=== PATIENT | male | born 1970 | race African-American/Black ===

== ENCOUNTER 2017-11-26 00:17 | Inpatient (IN) ==
[2017-11-26] MEDS ORDERED: Morphine Inj 4 MG/ML Vial IV.PUSH ONE (02:19)
--- NOTE | 2017-11-26 02:28 | ED ---
HPI General Chief Complaint: Medical Clearance Stated Complaint: Medical Time Seen by Provider: 11/26/17 02:12 Source: patient Mode of arrival: EMS Limitations: no limitations History of Present Illness HPI narrative: 47-year-old male complains of abdominal pain with nausea. Patient states that he has history of pancreatitis. Patient was admitted to hospital in [place] 2 weeks ago. Patient states that he was discharged after 4 days of in patient. Patient was put on some antibiotic that he does not know the name of. Patient has been taking Creon, omeprazole and tramadol. Patient states that the pain got worse this evening. Patient states that he has severe nausea but no vomiting or diarrhea. Patient denies any fever chills. EMS was called. Patient was given morphine and Zofran on with the ED. complaint: Reports abdominal pain Onset (ago): hour(s) Pain Consistency: constant Location: Reports epigastric Severity: severe Severity scale (1-10): 9 Quality: Reports cramping Radiation: Reports none Migration to: Reports no migration Relieving factors: nothing Exacerbating factors: nothing Associated symptoms: Reports nausea Related Data Home Medications Medication Instructions Recorded Confirmed Unable to Obtain Home Meds 11/26/17 11/26/17 Allergies Allergy/AdvReac Type Severity Reaction Status Date / Time No Known Allergies Allergy Unverified 11/26/17 01:32 Review of Systems ROS: all other systems reviewed are negative [facility] Medical History Medical History Afib (Acute) Pancreatitis (Acute) Social History Social History Substance History: No History of Abuse Second Hand Smoke Exposure: No Smoking Status: Former smoker Tobacco Type: Cigarettes How Often Do You Have a Drink Containing Alcohol: Never Recent Travel in [facility] within the Last 8 Weeks: No Recent Out of Country Travel within the Last 8 Weeks: No Immunization History Tetanus Immunization: <5 Years Hx Influenza Vaccine This Season: No Exam Narrative Exam Narrative: GENERAL: Well-nourished, well-developed patient. SKIN: Focused skin assessment warm/dry. HEAD: Normocephalic. EYES: No scleral icterus. No injection or drainage. NECK: Supple, trachea midline. No JVD or lymphadenopathy. CARDIOVASCULAR: Regular rate and rhythm without murmurs, gallops, or rubs. RESPIRATORY: Breath sounds equal bilaterally. No accessory muscle use. GASTROINTESTINAL: Abdomen soft, nondistended. Patient has moderate tenderness in palpation epigastric of abdomen area. No rebound tenderness. Some mild guarding noted. No mass. MUSCULOSKELETAL: No cyanosis, or edema. BACK: Nontender without obvious deformity. No CVA tenderness. Course Initial Documented Vital Signs Temperature 98.7 F 11/26/17 01:15 Pulse Rate 20 L 11/26/17 01:15 Respiratory Rate 20 11/26/17 01:15 Blood Pressure 123/79 11/26/17 01:15 Pulse Oximetry 97 11/26/17 01:15 Last Documented Vital Signs Temperature 98.7 F 11/26/17 01:15 Pulse Rate 102 H 11/26/17 03:52 Respiratory Rate 20 11/26/17 03:52 Blood Pressure 124/66 11/26/17 03:52 Pulse Oximetry 97 11/26/17 03:52 Medical Decision Making MDM Narrative Medical decision making narrative: 47-year-old male with abdominal pain. History of pancreatitis. Normal saline solution 125 cc an hour. Patient received morphine and Zofran from EMS. Morphine 4 mg IV. Protonix 40 mg IV. Medical Screen Exam Complete: Yes Emergency Medical Condition: Yes Differential Diagnosis Differential Diagnosis: Differential diagnosis including gastritis, PUD, pancreatitis, cholecystitis, colitis, UTI, pyelonephritis, nephrolithiasis. Lab Data Lab results reviewed: Yes I reviewed the patient's lab results. Result diagrams: 11/26/17 02:28 11/26/17 02:28 Lab Results 11/26/17 11/26/17 11/26/17 Range/Units 02:28 02:28 03:33 WBC 11.0 (4.0-11.0) th/mm3 RBC 2.83 L (4.50-5.90) mil/mm3 Hgb 8.7 L (13.0-17.0) gm/dL Hct 26.8 L (39.0-51.0) % MCV 94.6 (80.0-100.0) fL MCH 30.8 (27.0-34.0) pg MCHC 32.6 (32.0-36.0) % RDW 20.1 H (11.6-17.2) % Plt Count 441 (150-450) th/mm3 MPV 9.3 (7.0-11.0) fL Neut % (Auto) 80.2 H (16.0-70.0) % Lymph % (Auto) 10.9 (9.0-44.0) % [place] % (Auto) 7.8 (0.0-8.0) % Eos % (Auto) 0.5 (0.0-4.0) % Baso % (Auto) 0.6 (0.0-2.0) % Neut # (Auto) 8.9 H (1.8-7.7) th/mm3 Lymph # (Auto) 1.2 (1.0-4.8) th/mm3 [place] # (Auto) 0.9 (0.0-0.9) th/mm3 Eos # (Auto) 0.1 (0.0-0.4) th/mm3 Baso # (Auto) 0.1 (0.0-0.2) th/mm3 WBC Differential . Differential Comment Auto diff final Sodium 136 (136-145) meq/L Potassium 4.1 (3.5-5.1) meq/L Chloride 103 (98-107) meq/L Carbon Dioxide 23.3 (21.0-32.0) meq/L Anion Gap 10 (5-15) meq/L BUN 15 (7-18) mg/dL Creatinine 2.10 H (0.60-1.30) mg/dL Estimated GFR 41 L (>89) mL/min Random Glucose 86 (74-106) mg/dL Calcium 7.6 L (8.5-10.1) mg/dL Total Bilirubin 0.1 L (0.2-1.0) mg/dL AST 19 (15-37) U/L ALT 11 L (12-78) U/L Alkaline Phosphatase 90 (45-117) U/L Total Protein 7.3 (6.4-8.2) g/dL Albumin 2.1 L (3.4-5.0) g/dL Lipase 4923 H (73-393) U/L Urine Color Yellow (Yellw/Straw) Urine Clarity Clear (Clear) Urine pH 6.0 (5.0-8.5) Ur Specific [place] 1.011 (1.002-1.035) Urine Protein Negative (Neg-Trace) mg/dL Urine Glucose (UA) Negative (Negative) mg/dL Urine Ketones Trace H (Negative) mg/dL Urine Occult Blood Negative (Negative) Urine Nitrate Negative (Negative) Urine Bilirubin Negative (Negative) Urine Urobilinogen Less than 2 (Less than 2) mg/dL Ur Leukocyte Esterase Trace H (Negative) Urine WBC Less than 1 (0-5) /hpf Hyaline Casts 28 (0-3) /lpf Urine Mucus Few H (Occasional) /lpf Micro UA Comment Culture not ind Ur Microscopic Review Not Reportable Urine Culture Comments Culture not ind Imaging Data Attestation: I personally reviewed and interpreted this imaging study as follows : Radiologist's impression: Abdomen/Pelvis CT 11/26/17 02:19 CONCLUSION: 1. Cystic change in the right upper quadrant. The most common cause for cystic change in this region would be pancreatitis. These could be pseudocysts. 2. Mild ascites. Discharge Plan Discharge Disposition Patient Disposition: 30 Still Patient Discharge Details Diagnosis: Pancreatitis Physicians Team ED Provider: Chester Tobar Primary Care Provider: [facility]Orders / Referrals /Forms Prescriptions: No Action Unable to Obtain Home Meds RF: 0 Discharge Interventions Interventions: Vital Signs Last Done: 11/26/17 03:52 Status ED Status: With Doctor
[2017-11-26] MEDS: Sod Chloride 0.9% Inj 1,000 ML IV.CONT SCH ×7 (02:29→23:38)
[2017-11-26 02:44] LABS: Baso # (Auto) 0.1 th/mm3 (0.0-0.2); Baso % (Auto) 0.6 % (0.0-2.0); Eos # (Auto) 0.1 th/mm3 (0.0-0.4); Eos % (Auto) 0.5 % (0.0-4.0); Hematocrit 26.8 % (39.0-51.0); Hemoglobin 8.7 gm/dL (13.0-17.0); Lymph # (Auto) 1.2 th/mm3 (1.0-4.8); Lymph % (Auto) 10.9 % (9.0-44.0); Mean Corpuscular HGB Conc 32.6 % (32.0-36.0); Mean Corpuscular Hemoglobin 30.8 pg (27.0-34.0); Mean Corpuscular Volume 94.6 fL (80.0-100.0); Mean Platelet Volume 9.3 fL (7.0-11.0); Mono # (Auto) 0.9 th/mm3 (0.0-0.9); Mono % (Auto) 7.8 % (0.0-8.0); Neut # (Auto) 8.9 th/mm3 (1.8-7.7); Neut % (Auto) 80.2 % (16.0-70.0); Platelet Count 441 th/mm3 (150-450); Red Blood Count 2.83 mil/mm3 (4.50-5.90); Red Cell Distribution Width 20.1 % (11.6-17.2)
[2017-11-26 03:10] LABS: Albumin 2.1 g/dL (3.4-5.0); Anion Gap 10 meq/L (5-15); Aspartate Aminotransferase 19 U/L (15-37); Blood Urea Nitrogen 15 mg/dL (7-18); Calcium 7.6 mg/dL (8.5-10.1); Carbon Dioxide 23.3 meq/L (21.0-32.0); Chloride 103 meq/L (98-107); Glomerular Filtration Rate 41 mL/min (>89); Glucose,Random 86 mg/dL (74-106); Potassium 4.1 meq/L (3.5-5.1); Sodium 136 meq/L (136-145)
[2017-11-26 03:15] LABS: Alanine Aminotransferase 11 U/L (12-78); Alkaline Phosphatase 90 U/L (45-117); Lipase 4923 U/L (73-393); Total Protein 7.3 g/dL (6.4-8.2)
[2017-11-26 03:51] LABS: Bilirubin,Urine Negative (Negative); Clarity,Urine Clear (Clear); Color,Urine Yellow (Yellw/Straw); Glucose,Urine (UA) Negative (Negative); Hyaline Casts,Urine 28 /lpf (0-3); Leukocyte Esterase,Urine Trace (Negative); Mucus,Urine Few /lpf (Occasional); Nitrite,Urine Negative (Negative); Specific Gravity,Urine 1.011 (1.002-1.035)
--- NOTE | 2017-11-26 03:54 | CT ---
EXAM DATE: 11/26/2017 2:19 AM EDT AGE/SEX: 47 years / Male INDICATIONS: Abdominal pain. CLINICAL DATA: This is the patient's initial encounter. Patient reports that signs and symptoms have been present for 1 day and indicates a pain score of 10/10. MEDICAL/SURGICAL HISTORY: Pancreatitis. AFIB None. RADIATION DOSE: 6.64 CTDI (mGy) COMPARISON: No prior exams available for comparison. TECHNIQUE: Multiple contiguous axial images were obtained through the abdomen. Images were obtained using multiple row detector helical technique. Using automated exposure control and adjustment of the mA and/or kV according to patient size, radiation dose was kept as low as reasonably achievable to o btain optimal diagnostic quality images. DICOM format image data is available electronically for rev iew and comparison. FINDINGS: Lower Lungs: There are bibasilar areas of consolidation or atelectasis seen at the posterior lower lo bes. There is a mild right pleural effusion. Liver: There is some cystic change seen around the joseph hepatis region. This potentially is related to the pancreatic head. The most prominent area measures 4.9 cm and is seen adjacent to the caudate l obe. Spleen: Homogeneous density without enlargement. There is a small amount of fluid seen around the sp shirley likely related to mild ascites. Pancreas: Again noted are the areas of cystic change seen around the pancreatic head including an ar ea measuring 4.9 cm just to the caudate,, 4.1 cm adjacent to the left hepatic lobe, 3.7 cm seen betwe en the pancreatic head in the anterior aspect of the right kidney and 2.7 cm in diameter at the joseph hepatis region. The pancreatic head appears somewhat prominent. The pancreatic body and tail appears small. Kidneys: Normal in size and shape. No evidence of mass or hydronephrosis. Adrenal Glands: Unremarkable. Aorta: The aorta and proximal iliac vessels are grossly unremarkable without aneurysmal dilation. T here are scattered atherosclerotic calcifications present. Bowel/Mesentery: There is a mild amount of ascites seen around the spleen and in the pelvis. Abdominal Wall: Intact. Retroperitoneum: No evidence of adenopathy in the retrocrural, para-aortic, or deep pelvic regions. Bladder: Contours are smooth. Reproductive Organs: No abnormal masses or calcifications seen. Inguinal: The inguinal region is unremarkable without evidence of adenopathy. Bony Structures: There is degenerative change in the lumbar spine. CONCLUSION: 1. Cystic change in the right upper quadrant. The most common cause for cystic change in this region would be pancreatitis. These could be pseudocysts. 2. Mild ascites. Electronically signed by: Torey Carl MD 11/26/2017 3:53 AM EDT
[2017-11-26] MEDS ORDERED: Bisacodyl 10 MG Supp RECTAL PRN (05:06)
[2017-11-26] MEDS: Morphine Inj 4 MG/ML Vial IV.PUSH PRN ×5 (06:16→23:38)
--- NOTE | 2017-11-26 06:26 | P.HPIM ---
History of Present Illness Primary Care Physician: [facility] History of Present Illness: 47-year-old male presents with a 2-week history of waxing and waning sharp epigastric pain radiating to left chest, recent admission to [facility] in [place] 2 weeks ago where he was inpatient for 4 days. Pain improved after IV fluids, and he was discharged home. He says that pain has worsened over the past few days. He denies any nausea or vomiting but does report decreased appetite as well as a 20 pound weight loss over the past month. Denies any fevers or chills. Denies any diarrhea. He does report episode of fecal impaction 2 weeks ago which resolved after laxatives. Inpatient Certification: I certify that the inpatient services were ordered in accordance with Medicare regulations governing the order. This includes certification that hospital inpatient services are reasonable and necessary and in the case of services not specified as inpatient-only under 42 CFR 419.22(n), that they are appropriately provided as inpatient services in accordance to with the 2-midnight benchmark under 43 CFR 412.3(e) Estimated Total Length of Stay (Days): 2 Plans for Post Hospital Care: Home Review of Systems All other systems reviewed negative except as stated in HPI PMFSH - History History Provided By: Patient - Medical History Medical History: Medical History (Last Updated 11/26/17 @ 06:22 by Shar Maurer MD) Afib No pertinent family history Pancreatitis - Surgical History Surgical History: Surgical History (Last Updated 11/26/17 @ 06:22 by Shar Maurer MD) No pertinent past surgical history - Family History Family History: Family History (Last Updated 11/26/17 @ 06:22 by Shar Maurer MD) Mother Stroke - Tobacco History Second Hand Smoke Exposure: No Tobacco Use In Past 30 Days: No Smoking Status: Former smoker Tobacco Type: Cigarettes - Alcohol History How Often Do You Have a Drink Containing Alcohol: Never - Substance Use History Substance History: No History of Abuse - Travel History Recent Travel in the [place] Within the Last 8 Weeks: No Recent Travel Out of the Country Within the Last 8 Weeks: No - Immunization History Tetanus Immunization: <5 Years Hx Influenza Vaccine This Season: No Medications and Allergies Active Medications: Active Medications Al Hydroxide/Mg Hydroxide (Milk Of Magnesia Liq) 30 ml PO Q12H PRN PRN Reason: Mild Constipation Bisacodyl (Dulcolax Supp) 10 mg RECTAL DAILY PRN PRN Reason: SEVERE CONSITIPATION Sodium Chloride (Ns Inj) 1,000 mls @ 125 mls/hr IV.CONT .Q8H [facility] Stop: 11/26/17 10:29 Last Infusion: 11/26/17 05:59 Dose: 175 mls/hr Sodium Chloride (Ns Inj) 1,000 mls @ 175 mls/hr IV.CONT .Q5H43M [facility] Last Admin: 11/26/17 06:01 Dose: 175 mls/hr Lactulose (Lactulose Liq) 30 ml PO DAILY PRN PRN Reason: SEVERE CONSITIPATION Morphine Sulfate (Morphine Inj) 2 mg IV.PUSH Q3H PRN PRN Reason: pain 1 to 5 Morphine Sulfate (Morphine Inj) 4 mg IV.PUSH Q3H PRN PRN Reason: pain 6 to 10 Last Admin: 11/26/17 06:16 Dose: 4 mg Sennosides (Senokot) 17.2 mg PO Q12H PRN PRN Reason: Moderate Constipation Allergies Allergy/AdvReac Type Severity Reaction Status Date / Time No Known Allergies Allergy Unverified 11/26/17 01:32 Home Medications Medication Instructions Recorded Confirmed Type [id number] [Creon] 11/26/17 11/26/17 History omeprazole 11/26/17 11/26/17 History tramadol 11/26/17 History Exam Vital signs: Vital Signs 11/26/17 01:15 11/26/17 03:52 Temperature 98.7 F Pulse Rate 98 H 102 H Respiratory Rate 20 20 Blood Pressure 123/79 124/66 Pulse Oximetry 97 97 Intake & Output 11/25/17 11/25/17 11/26/17 06:59 18:59 06:59 Intake Total 300 / 300 Balance 300 / 300 Weight 79.379 kg Intake: IV 300 / 300 NS Inj 1,000 ML @ 125 mls/hr IV 300 / 300 .CONT .Q8H [facility] Rx#:[id number] Narrative: GENERAL: Patient lying in bed. Appears uncomfortable. Alert and oriented x3. SKIN: Warm and dry. HEAD: Atraumatic. Normocephalic. EYES: Pupils equal and round. No scleral icterus. No injection or drainage. ENT: No nasal bleeding or discharge. Mucous membranes pink and moist. NECK: Trachea midline. No JVD. CARDIOVASCULAR: Regular rate and rhythm. RESPIRATORY: No accessory muscle use. Clear to auscultation. Breath sounds equal bilaterally. GASTROINTESTINAL: Abdomen soft, tender to mild palpation in the epigastrium. Nondistended. Hepatic and splenic margins not palpable. MUSCULOSKELETAL: Extremities without clubbing, cyanosis, or edema. No obvious deformities. NEUROLOGICAL: Awake and alert. No obvious cranial nerve deficits. Motor grossly within normal limits. Five out of 5 muscle strength in the arms and legs. Normal speech. PSYCHIATRIC: Appropriate mood and affect; insight and judgment normal. Results - Labs CBC & Chem 7: 11/26/17 02:28 11/26/17 02:28 Labs: Short CBC 11/26/17 Range/Units 02:28 WBC 11.0 (4.0-11.0) th/mm3 Hgb 8.7 L (13.0-17.0) gm/dL Hct 26.8 L (39.0-51.0) % Plt Count 441 (150-450) th/mm3 BMP 11/26/17 02:28 Sodium 136 Potassium 4.1 Chloride 103 Carbon Dioxide 23.3 BUN 15 Creatinine 2.10 H Calcium 7.6 L Liver Function 11/26/17 Range/Units 02:28 Total Bilirubin 0.1 L (0.2-1.0) mg/dL AST 19 (15-37) U/L ALT 11 L (12-78) U/L Alkaline Phosphatase 90 (45-117) U/L Albumin 2.1 L (3.4-5.0) g/dL Urine 11/26/17 Range/Units 03:33 Urine Color Yellow (Yellw/Straw) Urine Clarity Clear (Clear) Urine pH 6.0 (5.0-8.5) Ur Specific [place] 1.011 (1.002-1.035) Urine Protein Negative (Neg-Trace) mg/dL Urine Glucose (UA) Negative (Negative) mg/dL - Imaging Impressions Abdomen/Pelvis CT 11/26/17 02:19 CONCLUSION: 1. Cystic change in the right upper quadrant. The most common cause for cystic change in this region would be pancreatitis. These could be pseudocysts. 2. Mild ascites. Caprini VTE Risk Assessment Caprini VTE Risk Assessment: No/Low Risk (score <= 1) Caprini Risk Assessment Model: Point Value = 1 Point Value = 2 Point Value = 3 Point Value = 5 Age 41-60 Minor surgery BMI > 25 kg/m2 Swollen legs Varicose veins or History of unexplained or recurrent spontaneous Oral contraceptives or hormone replacement Sepsis (< 1 month) Serious lung disease, including pneumonia (< 1 month) Abnormal pulmonary function Acute myocardial infarction Congestive heart failure (< 1 month) History of inflammatory bowel disease Medical patient at bed rest Age 61-74 Arthroscopic surgery Major open surgery (> 45 min) Laparoscopic surgery (> 45 min) Malignancy Confined to bed (> 72 hours) Immobilizing plaster cast Central venous access Age >= 75 History of VTE Family history of VTE Factor V Leiden Prothrombin [id number] Lupus anticoagulant Anticardiolipin antibodies Elevated serum homocysteine Heparin-induced thrombocytopenia Other congenital or acquired thrombophilia Stroke (< 1 month) Elective arthroplasty Hip, pelvis, or leg fracture Acute spinal cord injury (< 1 month) Prophylaxis Regimen: Total Risk Factor Score Risk Level Prophylaxis Regimen 0-1 Low Early ambulation 2 Moderate Order ONE of the following: *Sequential Compression Device (SCD) *Heparin 5000 units SQ BID 3-4 Higher Order ONE of the following medications: *Heparin 5000 units SQ TID *Enoxaparin/Lovenox 40 mg SQ daily (WT < 150 kg, CrCl > 30 mL/min) *Enoxaparin/Lovenox 30 mg SQ daily (WT < 150 kg, CrCl > 10-29 mL/min) *Enoxaparin/Lovenox 30 mg SQ BID (WT < 150 kg, CrCl > 30 mL/min) AND/OR *Sequential Compression Device (SCD) 5 or more Highest Order ONE of the following medications: *Heparin 5000 units SQ TID (Preferred with Epidurals) *Enoxaparin/Lovenox 40 mg SQ daily (WT < 150 kg, CrCl > 30 mL/min) *Enoxaparin/Lovenox 30 mg SQ daily (WT < 150 kg, CrCl > 10-29 mL/min) *Enoxaparin/Lovenox 30 mg SQ BID (WT < 150 kg, CrCl > 30 mL/min) AND *Sequential Compression Device (SCD) Assessment and Plan - Plan //Acute on chronic pancreatitis Lipase significantly elevated 4923. CT abdomen with what appears to be pseudocyst. Due to recurrent nature, will consult gastroenterology. Will request records from [facility] in [place]. = Aggressive IV fluids. N.p.o. Follow-up GI recommendations. //Anemia. Hemoglobin 8.9. Uncertain chronicity. No signs of bleeding. Will monitor. //Reported history of atrial fibrillation. No history of stroke. Will check EKG. //GERD. Chronic. Will continue PPI. Discussed Condition With: Patient, nurse, ED physician.
[2017-11-26] MEDS: Pantoprazole Inj 40 MG Vial IV.PUSH SCH ×2 (07:30→19:37)
--- NOTE | 2017-11-26 11:17 | P.CONGI ---
History of Present Illness Consult date: 11/26/17 Consult reason: Recurrent pancreatitis with pseudocyst Chief complaint: acute pancreatitis, pancreatic pseudocyst History of Present Illness: This is a 47-year-old male who came into the hospital for further evaluation of his sharp epigastric pain, right upper quadrant pain and generalized radiating abdominal pain which had worsened over the past 2-3 days. According to the record and the patient he was in the hospital at [facility] in [place] on 11/07/2017 with diagnosis of pancreatitis with pseudocyst after 4 days patient was discharged outpatient antibiotics. Patient came to [place] for conference and continued to have worsening of his abdominal pain as well as constipation. Patient denies any acute nausea or vomiting but does note some decreased appetite patient has a significant history of EtOH use is up until about 2 months ago when he started getting sick. Patient denies any obvious rectal bleeding or dyspepsia or dysphasia. Patient notes recent fecal impaction and constipation which is worsened over the past few months. 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 Patient notes questionable history of liver cyst? Current labs show hemoglobin 8.7, WBC count 11, mild increase in BUN and creatinine, normal bilirubin at 0.1 and normal LFTs. Lipase level currently is 4923 on admission. Patient notes [facility] but [place] was unable to provide on an outpatient basis. gastroenterology was consulted to assist with his symptoms and plan of care. Patient does note that he had seen gastroenterology in the [place] area and notes previous EGD colonoscopy approximately 1 year ago. Patient is not sure of results. <Antonia Sharma - Last Filed: 11/26/17 11:01> Review of Systems All other systems reviewed negative except as stated in HPI <Antonia Sharma - Last Filed: 11/26/17 11:01> PMFSH - History History Provided By: Patient - Medical History Medical History: Medical History (Last Updated 11/26/17 @ 06:22 by Shar Maurer MD) Afib No pertinent family history Pancreatitis - Surgical History Surgical History: Surgical History (Last Updated 11/26/17 @ 06:22 by Shar Maurer MD) No pertinent past surgical history - Family History Family History: Family History (Last Updated 11/26/17 @ 06:22 by Shar Maurer MD) Mother Stroke - Tobacco History Second Hand Smoke Exposure: No Tobacco Use In Past 30 Days: No Smoking Status: Former smoker Tobacco Type: Cigarettes - Alcohol History How Often Do You Have a Drink Containing Alcohol: Never - Substance Use History Substance History: No History of Abuse - Travel History Recent Travel in the [place] Within the Last 8 Weeks: No Recent Travel Out of the Country Within the Last 8 Weeks: No - Immunization History Tetanus Immunization: <5 Years Hx Influenza Vaccine This Season: No <Antonia Sharma - Last Filed: 11/26/17 11:01> - Medical History Medical History: Medical History (Last Updated 11/26/17 @ 06:22 by Shar Maurer MD) Afib No pertinent family history Pancreatitis - Surgical History Surgical History: Surgical History (Last Updated 11/26/17 @ 06:22 by Shar Maurer MD) No pertinent past surgical history - Family History Family History: Family History (Last Updated 11/26/17 @ 06:22 by Shar Maurer MD) Mother Stroke <Joel Mar - Last Filed: 11/26/17 15:34> Medications and Allergies Active Medications: Active Medications Al Hydroxide/Mg Hydroxide (Milk Of Magnesia Liq) 30 ml PO Q12H PRN PRN Reason: Mild Constipation Bisacodyl (Dulcolax Supp) 10 mg RECTAL DAILY PRN PRN Reason: SEVERE CONSITIPATION Sodium Chloride (Ns Inj) 1,000 mls @ 175 mls/hr IV.CONT .Q5H43M [facility] Last Infusion: 11/26/17 09:24 Dose: 175 mls/hr Lactulose (Lactulose Liq) 30 ml PO DAILY PRN PRN Reason: SEVERE CONSITIPATION Morphine Sulfate (Morphine Inj) 2 mg IV.PUSH Q3H PRN PRN Reason: pain 1 to 5 Morphine Sulfate (Morphine Inj) 4 mg IV.PUSH Q3H PRN PRN Reason: pain 6 to 10 Last Admin: 11/26/17 09:58 Dose: 4 mg Pantoprazole Sodium (Protonix Inj) 40 mg IV.PUSH Q12H [facility] Last Admin: 11/26/17 07:30 Dose: 40 mg Sennosides (Senokot) 17.2 mg PO Q12H PRN PRN Reason: Moderate Constipation <Antonia Sharma - Last Filed: 11/26/17 11:01> Active Medications: Active Medications Al Hydroxide/Mg Hydroxide (Milk Of Magnesia Liq) 30 ml PO Q12H PRN PRN Reason: Mild Constipation Bisacodyl (Dulcolax Supp) 10 mg RECTAL DAILY PRN PRN Reason: SEVERE CONSITIPATION Sodium Chloride (Ns Inj) 1,000 mls @ 175 mls/hr IV.CONT .Q5H43M [facility] Last Infusion: 11/26/17 15:20 Dose: Infused Lactulose (Lactulose Liq) 30 ml PO DAILY PRN PRN Reason: SEVERE CONSITIPATION Morphine Sulfate (Morphine Inj) 2 mg IV.PUSH Q3H PRN PRN Reason: pain 1 to 5 Morphine Sulfate (Morphine Inj) 4 mg IV.PUSH Q3H PRN PRN Reason: pain 6 to 10 Last Admin: 11/26/17 14:20 Dose: 4 mg Pantoprazole Sodium (Protonix Inj) 40 mg IV.PUSH Q12H [facility] Last Admin: 11/26/17 07:30 Dose: 40 mg Sennosides (Senokot) 17.2 mg PO Q12H PRN PRN Reason: Moderate Constipation <Joel Mar - Last Filed: 11/26/17 15:34> Allergies Allergy/AdvReac Type Severity Reaction Status Date / Time No Known Allergies Allergy Unverified 11/26/17 01:32 Home Medications Medication Instructions Recorded Confirmed Type allopurinol 300 mg PO DAILY PRN 11/26/17 11/26/17 History amlodipine 5 mg PO DAILY 11/26/17 11/26/17 History cyanocobalamin-cobamamide [B12] 11/26/17 History folic acid 1 mg PO DAILY 11/26/17 11/26/17 History gabapentin 600 mg PO DAILY 11/26/17 11/26/17 History ciyara-ejrvzpia-[id number] [Creon] 24,000 PO TIDAC 11/26/17 History lisinopril 40 mg PO DAILY 11/26/17 11/26/17 History metoprolol tartrate 100 mg PO BID 11/26/17 11/26/17 History omeprazole 11/26/17 11/26/17 History spironolactone 25 mg PO DAILY PRN 11/26/17 11/26/17 History thiamine HCl (vitamin B1) 100 mg PO DAILY 11/26/17 11/26/17 History tramadol PRN 11/26/17 History Exam Vital signs: Vital Signs 11/26/17 01:15 11/26/17 03:52 11/26/17 06:30 Temperature 98.7 F 97.7 F Pulse Rate 98 H 102 H 91 H Respiratory Rate 20 20 18 Blood Pressure 123/79 124/66 123/79 Pulse Oximetry 97 97 94 L 11/26/17 08:00 Temperature 98.6 F Pulse Rate 88 Respiratory Rate 14 Blood Pressure 107/67 Pulse Oximetry 96 Intake & Output 11/25/17 11/26/17 11/26/17 18:59 06:59 18:59 Intake Total 300 / 300 1111 / 1111 Balance 300 / 300 1111 / 1111 Weight 79.379 kg Intake: IV 300 / 300 1111 / 1111 NS Inj 1,000 ML @ 175 mls/hr IV 300 / 300 1111 / 1111 .CONT .Q5H43M [facility] Rx#:[id number] - Constitutional moderate distress, average body habitus, disheveled - Routine HEENT Exam Head: Present: normocephalic, atraumatic ENT: Present: mucous membranes dry - Routine Neck Exam Present: supple - Routine Respiratory Exam Present: accessory muscle use (No obvious shortness of breath at rest) - Routine Cardiovascular Exam Present: S1, S2 - Routine Abdominal Exam Present: normoactive bowel sounds (Soft bowel sounds abdomen is round,), distended (Mild), guarding (Mild guarding generalized abdominal area) - Routine Neurological Exam Present: alert (Answering simple questions but a fair historian only) <Antonia Sharma - Last Filed: 11/26/17 11:01> Vital signs: Vital Signs 11/26/17 01:15 11/26/17 03:52 11/26/17 06:30 Temperature 98.7 F 97.7 F Pulse Rate 98 H 102 H 91 H Respiratory Rate 20 20 18 Blood Pressure 123/79 124/66 123/79 Pulse Oximetry 97 97 94 L 11/26/17 08:00 11/26/17 12:00 Temperature 98.6 F 98.5 F Pulse Rate 88 94 H Respiratory Rate 14 12 Blood Pressure 107/67 111/76 Pulse Oximetry 96 98 Intake & Output 11/25/17 11/26/17 11/26/17 18:59 06:59 18:59 Intake Total 300 / 300 1700 / 1700 Balance 300 / 300 1700 / 1700 Weight 79.379 kg Intake: IV 300 / 300 1700 / 1700 NS Inj 1,000 ML @ 175 mls/hr IV 300 / 300 1700 / 1700 .CONT .Q5H43M [facility] Rx#:[id number] <ZaidJoel teran - Last Filed: 11/26/17 15:34> Results - Labs CBC & Chem 7: 11/26/17 02:28 11/26/17 02:28 Labs: Laboratory Results - last 24 hr 11/26/17 11/26/17 11/26/17 02:28 02:28 03:33 WBC 11.0 RBC 2.83 L Hgb 8.7 L Hct 26.8 L MCV 94.6 MCH 30.8 MCHC 32.6 RDW 20.1 H Plt Count 441 MPV 9.3 Neut % (Auto) 80.2 H Lymph % (Auto) 10.9 [place] % (Auto) 7.8 Eos % (Auto) 0.5 Baso % (Auto) 0.6 Neut # (Auto) 8.9 H Lymph # (Auto) 1.2 [place] # (Auto) 0.9 Eos # (Auto) 0.1 Baso # (Auto) 0.1 WBC Differential . Differential Comment Auto diff final Sodium 136 Potassium 4.1 Chloride 103 Carbon Dioxide 23.3 Anion Gap 10 BUN 15 Creatinine 2.10 H Estimated GFR 41 L Random Glucose 86 Calcium 7.6 L Total Bilirubin 0.1 L AST 19 ALT 11 L Alkaline Phosphatase 90 Total Protein 7.3 Albumin 2.1 L Lipase 4923 H Urine Color Yellow Urine Clarity Clear Urine pH 6.0 Ur Specific [place] 1.011 Urine Protein Negative Urine Glucose (UA) Negative Urine Ketones Trace H Urine Occult Blood Negative Urine Nitrate Negative Urine Bilirubin Negative Urine Urobilinogen Less than 2 Ur Leukocyte Esterase Trace H Urine WBC Less than 1 Hyaline Casts 28 Urine Mucus Few H Micro UA Comment Culture not ind Ur Microscopic Review Not Reportable Urine Culture Comments Culture not ind - Imaging Impressions Abdomen/Pelvis CT 11/26/17 02:19 CONCLUSION: 1. Cystic change in the right upper quadrant. The most common cause for cystic change in this region would be pancreatitis. These could be pseudocysts. 2. Mild ascites. <Antonia Sharma - Last Filed: 11/26/17 11:01> - Labs CBC & Chem 7: 11/26/17 02:28 11/26/17 02:28 Labs: Laboratory Results - last 24 hr 11/26/17 11/26/17 11/26/17 02:28 02:28 03:33 WBC 11.0 RBC 2.83 L Hgb 8.7 L Hct 26.8 L MCV 94.6 MCH 30.8 MCHC 32.6 RDW 20.1 H Plt Count 441 MPV 9.3 Neut % (Auto) 80.2 H Lymph % (Auto) 10.9 [place] % (Auto) 7.8 Eos % (Auto) 0.5 Baso % (Auto) 0.6 Neut # (Auto) 8.9 H Lymph # (Auto) 1.2 [place] # (Auto) 0.9 Eos # (Auto) 0.1 Baso # (Auto) 0.1 WBC Differential . Differential Comment Auto diff final Sodium 136 Potassium 4.1 Chloride 103 Carbon Dioxide 23.3 Anion Gap 10 BUN 15 Creatinine 2.10 H Estimated GFR 41 L Random Glucose 86 Calcium 7.6 L Total Bilirubin 0.1 L AST 19 ALT 11 L Alkaline Phosphatase 90 Total Protein 7.3 Albumin 2.1 L Triglycerides Lipase 4923 H Tumor Marker AFP CA 19-9 Antigen Urine Color Yellow Urine Clarity Clear Urine pH 6.0 Ur Specific [place] 1.011 Urine Protein Negative Urine Glucose (UA) Negative Urine Ketones Trace H Urine Occult Blood Negative Urine Nitrate Negative Urine Bilirubin Negative Urine Urobilinogen Less than 2 Ur Leukocyte Esterase Trace H Urine WBC Less than 1 Hyaline Casts 28 Urine Mucus Few H Micro UA Comment Culture not ind Ur Microscopic Review Not Reportable Urine Culture Comments Culture not ind 11/26/17 11/26/17 11/26/17 12:50 12:50 12:50 WBC RBC Hgb Hct MCV MCH MCHC RDW Plt Count MPV Neut % (Auto) Lymph % (Auto) [place] % (Auto) Eos % (Auto) Baso % (Auto) Neut # (Auto) Lymph # (Auto) [place] # (Auto) Eos # (Auto) Baso # (Auto) WBC Differential Differential Comment Sodium Potassium Chloride Carbon Dioxide Anion Gap BUN Creatinine Estimated GFR Random Glucose Calcium Total Bilirubin AST ALT Alkaline Phosphatase Total Protein Albumin Triglycerides 108 Lipase Tumor Marker AFP 1.6 CA 19-9 Antigen 28.3 Urine Color Urine Clarity Urine pH Ur Specific [place] Urine Protein Urine Glucose (UA) Urine Ketones Urine Occult Blood Urine Nitrate Urine Bilirubin Urine Urobilinogen Ur Leukocyte Esterase Urine WBC Hyaline Casts Urine Mucus Micro UA Comment Ur Microscopic Review Urine Culture Comments - Imaging Impressions Abdomen/Pelvis CT 11/26/17 02:19 CONCLUSION: 1. Cystic change in the right upper quadrant. The most common cause for cystic change in this region would be pancreatitis. These could be pseudocysts. 2. Mild ascites. <Joel Mar - Last Filed: 11/26/17 15:34> Assessment and Plan - Plan Acute pancreatitis with pseudocyst, recent hospital stay in [place] approximately 2 weeks ago for 4 days day and was discharged on outpatient medications. Patient was in the [facility] and abdominal pain started to worsen and became uncontrolled within the past 24 hours. Patient notes that he forgot to bring some of his medicine with him. CT of the abdomen showed small amount of ascites and cystic changes in the right upper quadrant possible pancreatitis. History of Yousif's esophagus takes omeprazole daily. Patient denies any acute nausea or vomiting no dyspepsia no dysphasia. History of GI workup in the [facility], EGD colonoscopy done approximately 1 year ago but unknown findings. No family history of colon cancer Constipation worsened over the past few months and patient states fecal impaction while he was in the hospital at [facility] in [place]. Anemia, could be acute on chronic disease but patient denies any obvious hematemesis or rectal bleeding. History of alcohol usage and abuse up until approximately 2 months ago Current labs show patient's hemoglobin at 8.7 WBC 11, normal bilirubin and LFTs , lipase level 4923. Patient and were requesting patient to be stabilized and possibly to return back to the [place] area due to 's work. Patient also discussed testing through the [place] that he was unable to obtain on an outpatient basis. Possible ERCP versus EUS patient was not sure. Old records ordered from [facility]. Patient also states he has records from June 2017 at [facility] in [place]. Plan Diet n.p.o. for now may have a few ice chips to moisten oral cavity Monitor labs with special attention to hemoglobin Check CA 19 and alpha-fetoprotein Patient may need EUS probable first of the week IV hydration Protonix 40 mg IV every 12 Bowel regimen daily discussed with patient Reflux precautions also discussed with patient Supportive care Further recommendations to follow Patient was seen per myself and Dr. Mar, note was written on his behalf <Antonia Sharma - Last Filed: 11/26/17 11:01> - Plan Seen and examined with CLAIMS COLLECTOR, Await records from [place]. Possible EUS next week. The exam, history, and the medical decision-making described in the above note were completed with the assistance of the mid-level provider. I reviewed and agree with the findings presented. I attest that I had a [id number] encounter with the patient on the same day, and personally performed and documented my assessment and findings in the medical record. <Joel Mar - Last Filed: 11/26/17 15:34>
--- NOTE | 2017-11-26 12:58 | ECG ---
Date Performed: 11/26/2017 Time Performed: 11:43:45 PTAGE: 47 years EKG: Sinus rhythm MINIMAL VOLTAGE CRITERIA FOR LVH, CONSIDER NORMAL VARIANT NONSPECIFIC T-WAVE ABNORMALITY BORDERLINE ECG NO PREVIOUS TRACING DOCTOR: Clayton Mattson Interpretating Date/Time 11/26/2017 12:58:20
--- NOTE | 2017-11-26 15:06 | P.PNADD ---
Addendum to Inpatient Note Additional information: Patient seen/examined. We will continue fluid, pain management. Will start him on clear liquid diet. Appreciate GI input.
[2017-11-26] MEDS: Metoprolol Tartrate 100 MG Tablet PO SCH (21:17)
[2017-11-27] MEDS: Morphine Inj 4 MG/ML Vial IV.PUSH PRN ×4 (03:03→21:21)
[2017-11-27] MEDS: Sod Chloride 0.9% Inj 1,000 ML IV.CONT SCH ×4 (03:03→19:30)
[2017-11-27 05:00] LABS: Baso # (Auto) 0.1 th/mm3 (0.0-0.2); Baso % (Auto) 0.8 % (0.0-2.0); Eos # (Auto) 0.4 th/mm3 (0.0-0.4); Eos % (Auto) 4.6 % (0.0-4.0); Hematocrit 23.4 % (39.0-51.0); Hemoglobin 7.8 gm/dL (13.0-17.0); Lymph # (Auto) 2.4 th/mm3 (1.0-4.8); Lymph % (Auto) 30.4 % (9.0-44.0); Mean Corpuscular HGB Conc 33.6 % (32.0-36.0); Mean Corpuscular Hemoglobin 31.6 pg (27.0-34.0); Mean Corpuscular Volume 93.9 fL (80.0-100.0); Mean Platelet Volume 9.1 fL (7.0-11.0); Mono # (Auto) 0.8 th/mm3 (0.0-0.9); Neut # (Auto) 4.2 th/mm3 (1.8-7.7); Neut % (Auto) 54.2 % (16.0-70.0); Platelet Count 362 th/mm3 (150-450); Red Blood Count 2.49 mil/mm3 (4.50-5.90); Red Cell Distribution Width 20.3 % (11.6-17.2); White Blood Count 7.8 th/mm3 (4.0-11.0)
[2017-11-27 05:28] LABS: Albumin 1.8 g/dL (3.4-5.0); Anion Gap 9 meq/L (5-15); Aspartate Aminotransferase 16 U/L (15-37); Blood Urea Nitrogen 9 mg/dL (7-18); Calcium 7.8 mg/dL (8.5-10.1); Carbon Dioxide 22.7 meq/L (21.0-32.0); Chloride 107 meq/L (98-107); Glomerular Filtration Rate 66 mL/min (>89); Glucose,Random 96 mg/dL (74-106); Potassium 4.6 meq/L (3.5-5.1); Sodium 139 meq/L (136-145)
[2017-11-27 05:29] LABS: Alanine Aminotransferase 8 U/L (12-78)
[2017-11-27 05:31] LABS: Alkaline Phosphatase 72 U/L (45-117); Total Protein 6.6 g/dL (6.4-8.2)
[2017-11-27] MEDS: Pantoprazole Inj 40 MG Vial IV.PUSH SCH (06:15)
[2017-11-27] MEDS: Metoprolol Tartrate 100 MG Tablet PO SCH ×2 (10:19→21:14)
[2017-11-27] MEDS: amLODIPine 5 MG Tablet PO SCH (10:20)
[2017-11-27] MEDS: Folic Acid 1 MG Tablet PO SCH (10:30)
--- NOTE | 2017-11-27 13:14 | P.PN ---
Subjective Interval history: Follow-up for recurrent pancreatitis. Patient is currently doing well. He denies any abdominal pain. Ambulating well. He complains of reflux related discomfort. No fever or chills. Physical Exam Vital signs: Vital Signs 11/26/17 16:00 11/26/17 20:00 11/27/17 00:00 Temperature 97.8 F 98.5 F 98.9 F Pulse Rate 81 95 H 75 Respiratory Rate 14 20 20 Blood Pressure 135/85 123/82 118/81 Pulse Oximetry 99 97 98 11/27/17 04:00 11/27/17 08:00 Temperature 98.4 F 97.6 F Pulse Rate 80 82 Respiratory Rate 20 20 Blood Pressure 104/64 121/74 Pulse Oximetry 97 98 Intake & Output 11/26/17 11/27/17 11/27/17 18:59 06:59 18:59 Intake Total 3840 / 3840 2200 / 2200 Balance 3840 / 3840 2200 / 2200 Weight 83.1 kg Intake: IV 2600 / 2600 1999 / 1999 NS Inj 1,000 ML @ 175 mls/hr IV 2600 / 2600 1999 / 1999 .CONT .Q5H43M [facility] Rx#:[id number] Oral 1240 / 1240 200 / 200 Other: # Voids 4 3 # Bowel Movements 1 Narrative: GENERAL: Alert, oriented x3, NAD. SKIN: Warm and dry. HEAD: Normocephalic. EYES: No scleral icterus. No injection or drainage. NECK: Supple, trachea midline. No JVD or lymphadenopathy. CARDIOVASCULAR: Regular rate and rhythm without murmurs, gallops, or rubs. RESPIRATORY: Breath sounds equal bilaterally. No accessory muscle use. GASTROINTESTINAL: Abdomen soft, non-tender, nondistended. MUSCULOSKELETAL: No cyanosis, or edema. BACK: Nontender without obvious deformity. No CVA tenderness. Results - Labs CBC & Chem 7: 11/27/17 03:44 11/27/17 03:44 Laboratory Results - last 24 hr 11/26/17 11/26/17 11/26/17 12:50 12:50 12:50 WBC RBC Hgb Hct MCV MCH MCHC RDW Plt Count MPV Neut % (Auto) Lymph % (Auto) [place] % (Auto) Eos % (Auto) Baso % (Auto) Neut # (Auto) Lymph # (Auto) [place] # (Auto) Eos # (Auto) Baso # (Auto) WBC Differential Differential Comment Sodium Potassium Chloride Carbon Dioxide Anion Gap BUN Creatinine Estimated GFR Random Glucose Calcium Total Bilirubin AST ALT Alkaline Phosphatase Total Protein Albumin Triglycerides 108 Lipase Tumor Marker AFP 1.6 CA 19-9 Antigen 28.3 11/27/17 11/27/17 11/27/17 03:44 03:44 03:44 WBC 7.8 RBC 2.49 L Hgb 7.8 L Hct 23.4 L MCV 93.9 MCH 31.6 MCHC 33.6 RDW 20.3 H Plt Count 362 MPV 9.1 Neut % (Auto) 54.2 Lymph % (Auto) 30.4 [place] % (Auto) 10.0 H Eos % (Auto) 4.6 H Baso % (Auto) 0.8 Neut # (Auto) 4.2 Lymph # (Auto) 2.4 [place] # (Auto) 0.8 Eos # (Auto) 0.4 Baso # (Auto) 0.1 WBC Differential . Differential Comment Auto diff final Sodium 139 Potassium 4.6 Chloride 107 Carbon Dioxide 22.7 Anion Gap 9 BUN 9 Creatinine 1.39 H Estimated GFR 66 L Random Glucose 96 Calcium 7.8 L Total Bilirubin 0.1 L AST 16 ALT 8 L Alkaline Phosphatase 72 Total Protein 6.6 D Albumin 1.8 L Triglycerides Lipase 3710 H Tumor Marker AFP CA 19-9 Antigen Assessment and Plan - Plan Mr. Connolly is a pleasant 47-year-old who was admitted to the hospital due to recurrent pancreatitis. Acute pancreatitis History of previous episodes of pancreatitis History of Yousif's esophagus -Patient received normal saline at 25 cc/h. Will discontinue fluid for now. -GI started patient on low-fat diet. -GI plans to do endoscopic ultrasound study on 11/29/2017. -Will change pain meds to acetaminophen for pain 1-4, [place] for pain 5-10 and morphine 4 mg every 4 hours as needed for breakthrough pain. Anemia likely chronic -Hemoglobin dropped from 8.7 to 7.8. -WBC and platelet counts dropped as well. This likely represent hemodilution due to IV fluid. -Will check H&H this afternoon. Acute kidney injury -Creatinine on presentation 2.1. Currently 1.39. -Avoid nephrotoxins. Hypertension -Continue amlodipine 5 mg daily as well as metoprolol 100 mg twice daily. -We are holding other blood pressure medications due to acute kidney injury. Full code. Ambulation.
[2017-11-27] MEDS ORDERED: Acetaminophen 500 MG Tablet PO PRN (14:00)
--- NOTE | 2017-11-27 15:27 | P.PNGI ---
Subjective Interval history: Up ambulating in room seems to be feeling better without any current abdominal pain but does note dyspepsia. Patient does have history of Yousif's esophagus <Antonia Sharma - Last Filed: 11/27/17 15:20> Physical Exam Vital signs: Vital Signs 11/26/17 16:00 11/26/17 20:00 11/27/17 00:00 Temperature 97.8 F 98.5 F 98.9 F Pulse Rate 81 95 H 75 Respiratory Rate 14 20 20 Blood Pressure 135/85 123/82 118/81 Pulse Oximetry 99 97 98 11/27/17 04:00 11/27/17 08:00 11/27/17 12:00 Temperature 98.4 F 97.6 F 97.8 F Pulse Rate 80 82 96 H Respiratory Rate 20 20 16 Blood Pressure 104/64 121/74 140/70 Pulse Oximetry 97 98 96 Intake & Output 11/26/17 11/27/17 11/27/17 18:59 06:59 18:59 Intake Total 3840 / 3840 2200 / 2200 Balance 3840 / 3840 2200 / 2200 Weight 83.1 kg Intake: IV 2600 / 2600 1999 / 1999 NS Inj 1,000 ML @ 175 mls/hr IV 2600 / 2600 1999 / 1999 .CONT .Q5H43M [facility] Rx#:[id number] Oral 1240 / 1240 200 / 200 Other: # Voids 4 3 # Bowel Movements 1 - Constitutional mild distress, average body habitus - Routine HEENT Exam Head: Present: normocephalic Eye: Present: EOMI ENT: Present: mucous membranes moist - Routine Neck Exam Present: supple - Routine Respiratory Exam Present: accessory muscle use (No obvious shortness of breath) - Routine Cardiovascular Exam Present: RRR - Routine Abdominal Exam Present: soft, normoactive bowel sounds, tenderness (No obvious abdominal pain or tenderness today) - Routine Neurological Exam Present: alert (Mild anxiety) <Antonia Sharma M - Last Filed: 11/27/17 15:20> Vital signs: Vital Signs 11/26/17 16:00 11/26/17 20:00 11/27/17 00:00 Temperature 97.8 F 98.5 F 98.9 F Pulse Rate 81 95 H 75 Respiratory Rate 14 20 20 Blood Pressure 135/85 123/82 118/81 Pulse Oximetry 99 97 98 11/27/17 04:00 11/27/17 08:00 11/27/17 12:00 Temperature 98.4 F 97.6 F 97.8 F Pulse Rate 80 82 96 H Respiratory Rate 20 20 16 Blood Pressure 104/64 121/74 140/70 Pulse Oximetry 97 98 96 Intake & Output 11/26/17 11/27/17 11/27/17 18:59 06:59 18:59 Intake Total 3840 / 3840 2200 / 2200 Balance 3840 / 3840 2200 / 2200 Weight 83.1 kg Intake: IV 2600 / 2600 1999 / 1999 NS Inj 1,000 ML @ 175 mls/hr IV 2600 / 2600 1999 / 1999 .CONT .Q5H43M [facility] Rx#:[id number] Oral 1240 / 1240 200 / 200 Other: # Voids 4 3 # Bowel Movements 1 <Joel Mar - Last Filed: 11/27/17 15:43> Results - Labs CBC & Chem 7: 11/27/17 03:44 11/27/17 03:44 Laboratory Results - last 24 hr 11/27/17 11/27/17 11/27/17 03:44 03:44 03:44 WBC 7.8 RBC 2.49 L Hgb 7.8 L Hct 23.4 L MCV 93.9 MCH 31.6 MCHC 33.6 RDW 20.3 H Plt Count 362 MPV 9.1 Neut % (Auto) 54.2 Lymph % (Auto) 30.4 [place] % (Auto) 10.0 H Eos % (Auto) 4.6 H Baso % (Auto) 0.8 Neut # (Auto) 4.2 Lymph # (Auto) 2.4 [place] # (Auto) 0.8 Eos # (Auto) 0.4 Baso # (Auto) 0.1 WBC Differential . Differential Comment Auto diff final Sodium 139 Potassium 4.6 Chloride 107 Carbon Dioxide 22.7 Anion Gap 9 BUN 9 Creatinine 1.39 H Estimated GFR 66 L Random Glucose 96 Calcium 7.8 L Total Bilirubin 0.1 L AST 16 ALT 8 L Alkaline Phosphatase 72 Total Protein 6.6 D Albumin 1.8 L Lipase 3710 H <Antonia Sharma - Last Filed: 11/27/17 15:20> - Labs CBC & Chem 7: 09/30/18 03:44 11/27/17 03:44 Laboratory Results - last 24 hr 11/27/17 11/27/17 11/27/17 03:44 03:44 03:44 WBC 7.8 RBC 2.49 L Hgb 7.8 L Hct 23.4 L MCV 93.9 MCH 31.6 MCHC 33.6 RDW 20.3 H Plt Count 362 MPV 9.1 Neut % (Auto) 54.2 Lymph % (Auto) 30.4 [place] % (Auto) 10.0 H Eos % (Auto) 4.6 H Baso % (Auto) 0.8 Neut # (Auto) 4.2 Lymph # (Auto) 2.4 [place] # (Auto) 0.8 Eos # (Auto) 0.4 Baso # (Auto) 0.1 WBC Differential . Differential Comment Auto diff final Sodium 139 Potassium 4.6 Chloride 107 Carbon Dioxide 22.7 Anion Gap 9 BUN 9 Creatinine 1.39 H Estimated GFR 66 L Random Glucose 96 Calcium 7.8 L Total Bilirubin 0.1 L AST 16 ALT 8 L Alkaline Phosphatase 72 Total Protein 6.6 D Albumin 1.8 L Lipase 3710 H <Joel Mar - Last Filed: 11/27/17 15:43> Assessment and Plan - Plan Acute pancreatitis with pseudocyst, recent hospital stay in [place] approximately 2 weeks ago for 4 days day and was discharged on outpatient medications. Patient was in the [facility] and abdominal pain started to worsen and became uncontrolled within the past 24 hours. Patient notes that he forgot to bring some of his medicine with him. CT of the abdomen showed small amount of ascites and cystic changes in the right upper quadrant possible pancreatitis. History of Yousif's esophagus takes omeprazole daily. Patient denies any acute nausea or vomiting no dyspepsia no dysphasia. History of GI workup in the [place] area, EGD colonoscopy done approximately 1 year ago but unknown findings. No family history of colon cancer Constipation worsened over the past few months and patient states fecal impaction while he was in the hospital at [facility] in [place]. Anemia, could be acute on chronic disease but patient denies any obvious hematemesis or rectal bleeding. History of alcohol usage and abuse up until approximately 2 months ago Current labs show patient's hemoglobin at 8.7 WBC 11, normal bilirubin and LFTs , lipase level 4923. Patient and were requesting patient to be stabilized and possibly to return back to the [place] area due to 's work. [facility] also [facility] was unable to obtain on an outpatient basis. Possible ERCP versus EUS patient was not sure. Old records ordered from [facility]. Patient also states he has records from June 2017 at [facility] in [place]. 11/27/2017 patient is up walking around in the room and states abdominal pain is much better today and improved. Labs reviewed which include hemoglobin initially 8.7 now 7.8. Discussed findings with Dr. Padilla who is planning to recheck hemoglobin and evaluate. Bilirubin and LFTs are normal, alpha- fetoprotein 1.6, CA 199 is 28.3. Lipase level 3710 which is mildly decreased in trending in the right direction. Discussed with patient the need for EGD with EUS planned for Tuesday a.m. patient has history of Yousif's esophagus and has noted some dyspepsia which is worsened over the past few days. Diet increased to low-fat diet. Mild anxiety noted but overall abdominal pain is controlled. Discussed with patient again reflux precautions, and maintain head of bed elevated at least 45 degrees when sleeping. Acute pancreatitis with pseudocyst Dyspepsia Anemia, may require transfusion Plan Diet low-fat Monitor labs with special attention to hemoglobin Consent for EUS on Tuesday N.p.o. Tuesday night early Tuesday morning for EUS Continue IV hydration for now Protonix 40 mg IV every 12 Bowel regimen Supportive care Further recommendations to follow Patient was seen per myself and Dr. Mar, note was written on his behalf <Antonia Sharma - Last Filed: 11/27/17 15:20> - Plan Seen and examined with PEER EDUCATOR, EGD/EUS next week. The exam, history, and the medical decision-making described in the above note were completed with the assistance of the mid-level provider. I reviewed and agree with the findings presented. I attest that I had a [id number] encounter with the patient on the same day, and personally performed and documented my assessment and findings in the medical record. <Joel Mar - Last Filed: 11/27/17 15:43>
[2017-11-27 18:19] LABS: Hematocrit 24.1 % (39.0-51.0); Hemoglobin 8.1 gm/dL (13.0-17.0)
[2017-11-28] MEDS: Metoprolol Tartrate 100 MG Tablet PO SCH ×3 (07:57→21:42)
[2017-11-28] MEDS: Folic Acid 1 MG Tablet PO SCH ×2 (07:57→10:18)
[2017-11-28] MEDS: amLODIPine 5 MG Tablet PO SCH ×2 (07:58→10:18)
--- NOTE | 2017-11-28 11:23 | P.PN ---
Subjective Interval history: Follow-up for recurrent pancreatitis. It is currently doing well. No chest pain, shortness of breath, fever or chills. He is a scheduled for EUS tomorrow. Physical Exam Vital signs: Vital Signs 11/27/17 12:00 11/27/17 16:00 11/27/17 20:00 Temperature 97.8 F 98.6 F 98.5 F Pulse Rate 96 H 85 73 Respiratory Rate 16 14 20 Blood Pressure 140/70 120/74 126/77 Pulse Oximetry 96 98 11/28/17 00:00 11/28/17 08:00 Temperature 98.5 F 98.7 F Pulse Rate 75 69 Respiratory Rate 20 18 Blood Pressure 126/77 133/65 Pulse Oximetry 98 97 Intake & Output 11/27/17 11/28/17 11/28/17 18:59 06:59 18:59 Intake Total 880 / 880 320 / 320 Balance 880 / 880 320 / 320 Weight 83.1 kg Intake: Oral 880 / 880 320 / 320 Other: # Voids 3 3 Narrative: GENERAL: Alert, oriented x3, NAD. SKIN: Warm and dry. HEAD: Normocephalic. EYES: No scleral icterus. No injection or drainage. NECK: Supple, trachea midline. No JVD or lymphadenopathy. CARDIOVASCULAR: Regular rate and rhythm without murmurs, gallops, or rubs. RESPIRATORY: Breath sounds equal bilaterally. No accessory muscle use. GASTROINTESTINAL: Abdomen soft, non-tender, nondistended. MUSCULOSKELETAL: No cyanosis, or edema. BACK: Nontender without obvious deformity. No CVA tenderness. Results - Labs CBC & Chem 7: 11/27/17 17:32 11/27/17 03:44 Laboratory Results - last 24 hr 11/27/17 11/27/17 03:44 17:32 Hgb 8.1 L Hct 24.1 L Lipase 3710 H - Imaging Abdomen/Pelvis CT 11/26/17 02:19 CONCLUSION: 1. Cystic change in the right upper quadrant. The most common cause for cystic change in this region would be pancreatitis. These could be pseudocysts. 2. Mild ascites. Assessment and Plan - Plan Mr. Connolly is a pleasant 47-year-old who was admitted to the hospital due to recurrent pancreatitis. Acute pancreatitis History of previous episodes of pancreatitis History of Yousif's esophagus -Patient received normal saline at 25 cc/h. Will discontinue fluid for now. -GI started patient on low-fat diet. -GI plans to do endoscopic ultrasound study on 11/29/2017. -Continue acetaminophen for pain 1-4, [place] for pain 5-10 and morphine 4 mg every 4 hours as needed for breakthrough pain. Anemia likely chronic -Hemoglobin dropped from 8.7 to 7.8 --> 8.1. -WBC and platelet counts dropped as well. This likely represent hemodilution due to IV fluid. Acute kidney injury -Creatinine on presentation 2.1. Currently 1.39. -Avoid nephrotoxins. Hypertension -Continue amlodipine 5 mg daily as well as metoprolol 100 mg twice daily. -We are holding other blood pressure medications due to acute kidney injury. -Currently normotensive. Full code. Ambulation. Discharge: Possibly on 11/29/2017 after EUS.
--- NOTE | 2017-11-28 13:00 | P.PNGI ---
Subjective Interval history: Patient laying supine in bed with spouse at bedside. Patient states he is tolerating po intake well- Cardiac diet. Denies difficulty or painful swallowing , denies nausea or vomiting. Endorses abdominal pain resolved. States he has an intermittent dull aching sensation in his throat and makes breathing painful. This is unchanged from symptoms described upon admission per patient. States pain medication ordered helps provide some relief. <Sharita Vaughn - Last Filed: 11/28/17 16:33> Physical Exam Vital signs: Vital Signs 11/27/17 16:00 11/27/17 20:00 11/28/17 00:00 Temperature 98.6 F 98.5 F 98.5 F Pulse Rate 85 73 75 Respiratory Rate 14 20 20 Blood Pressure 120/74 126/77 126/77 Pulse Oximetry 98 98 11/28/17 08:00 Temperature 98.7 F Pulse Rate 69 Respiratory Rate 18 Blood Pressure 133/65 Pulse Oximetry 97 Intake & Output 11/27/17 11/28/17 11/28/17 18:59 06:59 18:59 Intake Total 880 / 880 320 / 320 Balance 880 / 880 320 / 320 Weight 83.1 kg Intake: Oral 880 / 880 320 / 320 Other: # Voids 3 3 - Constitutional no acute distress, mild distress - Routine HEENT Exam Head: Present: normocephalic - Routine Respiratory Exam Present: CTA bilaterally. Absent: accessory muscle use - Routine Cardiovascular Exam Present: RRR - Routine Abdominal Exam Present: soft, normoactive bowel sounds. Absent: tenderness, distended, guarding, firm Comments: Reports soft brown BM this am with no noted blood or mucous. - Routine Extremities Exam Present: full ROM, pulses intact. Absent: edema - Routine Skin Exam Present: dry, warm - Routine Neurological Exam Present: alert, oriented X3 - Detailed Neurological Exam: Coma Scale Eye Opening: Spontaneous Verbal Response: Oriented Motor Response: Extension [place] Coma Scale Total: 11 - Routine Psychiatric Exam Present: normal affect, cooperative <Sharita Vaughn - Last Filed: 11/28/17 16:33> Vital signs: Vital Signs 11/28/17 00:00 11/28/17 08:00 11/28/17 12:00 Temperature 98.5 F 98.7 F 98.4 F Pulse Rate 75 69 68 Respiratory Rate 20 18 18 Blood Pressure 126/77 133/65 119/79 Pulse Oximetry 98 97 98 11/28/17 15:40 11/28/17 20:00 Temperature 97.5 F L 97.7 F Pulse Rate 72 72 Respiratory Rate 18 18 Blood Pressure 122/80 148/83 H Pulse Oximetry 98 100 Intake & Output 11/28/17 11/28/17 11/29/17 06:59 18:59 06:59 Intake Total 320 / 320 Balance 320 / 320 Weight 83.1 kg Intake: Oral 320 / 320 Other: # Voids 3 2 <Chetan Puri - Last Filed: 11/28/17 22:04> Results - Labs CBC & Chem 7: 11/27/17 17:32 11/27/17 03:44 Laboratory Results - last 24 hr 11/27/17 17:32 Hgb 8.1 L Hct 24.1 L <Sharita Vaughn - Last Filed: 11/28/17 16:33> - Labs CBC & Chem 7: 11/27/17 17:32 11/27/17 03:44 Laboratory Results - last 24 hr 11/28/17 12:46 Lipase 3933 H <Chetan Puri - Last Filed: 11/28/17 22:04> Assessment and Plan (1) Pancreatitis Status: Acute Code(s): K85.90 - Acute pancreatitis without necrosis or infection, unspecified - Plan Acute pancreatitis with pseudocyst, recent hospital stay in [place] approximately 2 weeks ago for 4 days day and was discharged on outpatient medications. Patient was in the [facility] and abdominal pain started to worsen and became uncontrolled within the past 24 hours. Patient notes that he forgot to bring some of his medicine with him. CT of the abdomen showed small amount of ascites and cystic changes in the right upper quadrant possible pancreatitis. History of Yousif's esophagus takes omeprazole daily. Patient denies any acute nausea or vomiting no dyspepsia no dysphasia. History of GI workup in the [place] area, EGD colonoscopy done approximately 1 year ago but unknown findings. No family history of colon cancer Constipation worsened over the past few months and patient states fecal impaction while he was in the hospital at [facility] in [place]. Anemia, could be acute on chronic disease but patient denies any obvious hematemesis or rectal bleeding. History of alcohol usage and abuse up until approximately 2 months ago Current labs show patient's hemoglobin at 8.7 WBC 11, normal bilirubin and LFTs , lipase level 4923. Patient and were requesting patient to be stabilized and possibly to return back to the [place] area due to 's work. Patient also [facility] that he was unable to obtain on an outpatient basis. Possible ERCP versus EUS patient was not sure. Old records ordered from [facility]. Patient also states he has records from June 2017 at [facility] in [place]. 11/27/2017 patient is up walking around in the room and states abdominal pain is much better today and improved. Labs reviewed which include hemoglobin initially 8.7 now 7.8. Discussed findings with Dr. Padilla who is planning to recheck hemoglobin and evaluate. Bilirubin and LFTs are normal, alpha- fetoprotein 1.6, CA 199 is 28.3. Lipase level 3710 which is mildly decreased in trending in the right direction. Discussed with patient the need for EGD with EUS planned for Tuesday a.m. patient has history of Yousif's esophagus and has noted some dyspepsia which is worsened over the past few days. Diet increased to low-fat diet. Mild anxiety noted but overall abdominal pain is controlled. Discussed with patient again reflux precautions, and maintain head of bed elevated at least 45 degrees when sleeping. Acute pancreatitis with pseudocyst Dyspepsia Anemia, may require transfusion 11/28/17- Patient laying supine in bed, spouse at bedside. Discussed plan/ procedure for EGD/ EUS with patient. Reviewed most recent labs. Lipase ordered for today. Patient denies dyspepsia or dysphagia. Patient has hx of Barrettes Esophagus and reports intermittent dull aching sensation in throat. Patient states abdominal pain resolved. Plan: -Cardiac Diet as tolerated -Pain medication as per attending MD -Continue Lactulose -Continue PPI -Plan for EUS tomorrow -Lipase level today -Supportive care -Further recommendations to follow This patient has been seen by mysjoycef and Dr. Puri and this note is written on his behalf. - Attending Attestation Dr. Puri <Sharita Vaughn - Last Filed: 11/28/17 16:33> (1) Pancreatitis Status: Acute Code(s): K85.90 - Acute pancreatitis without necrosis or infection, unspecified - Plan Patient seen and examined Agree with above Continue with current supportive care Monitor labs Acute recurrent pancreatitis with what appears to be pseudocyst formation we will plan on endoscopic ultrasound tomorrow with possible sampling Most likely the patient has underlying chronic pancreatitis as a potential cause for his repeat and recurrent pancreatitis Patient claims minimal alcohol intake at this point but still he has had heavy alcohol use in the past and he is advised to total abstinence of alcohol <Chetan Puri E - Last Filed: 11/28/17 22:04> <Sharita Vaughn - Last Filed: 11/28/17 16:33> (1) Pancreatitis Qualifiers: Chronicity: acute Pancreatitis type: unspecified pancreatitis type Acute pancreatitis complication: no infection or necrosis Qualified Code(s): K85.90 - Acute pancreatitis without necrosis or infection, unspecified <Cehtan Puri E - Last Filed: 11/28/17 22:04> (1) Pancreatitis Qualifiers: Chronicity: acute Pancreatitis type: unspecified pancreatitis type Acute pancreatitis complication: no infection or necrosis Qualified Code(s): K85.90 - Acute pancreatitis without necrosis or infection, unspecified
[2017-11-29] MEDS: Folic Acid 1 MG Tablet PO SCH (08:33)
[2017-11-29] MEDS: Metoprolol Tartrate 100 MG Tablet PO SCH ×2 (08:33→21:25)
[2017-11-29] MEDS: amLODIPine 5 MG Tablet PO SCH (08:34)
[2017-11-29] MEDS ORDERED: Metoprolol Tartrate 25 MG Tablet PO ONE (11:15)
[2017-11-29] MEDS ORDERED: Sodium Chlor 0.9% Inj 500 ML IV.CONT ONE (11:15)
[2017-11-29] MEDS ORDERED: Chlorhexidine Gluconate 2% 1 Pack (2 Cloths) TOPICAL ONE (11:15)
--- NOTE | 2017-11-29 12:12 | P.PN ---
Subjective Interval history: Follow up for pancreatitis. Attempted to see patient around 11:30AM. He is in procedure. Will attempt to see patient later. Patient was seen in the afternoon after EGD/EUS. Patient is currently doing well. Denies any chest pain, shortness of breath, abdominal pain, fever or chills. He is tolerating current diet well. He wants to go home. However, GI has not cleared for discharge yet. Physical Exam Vital signs: Vital Signs 11/28/17 15:40 11/28/17 20:00 11/29/17 00:00 Temperature 97.5 F L 97.7 F 98.0 F Pulse Rate 72 72 67 Respiratory Rate 18 18 16 Blood Pressure 122/80 148/83 H 130/83 Pulse Oximetry 98 100 96 11/29/17 08:00 Temperature 97.6 F Pulse Rate 57 L Respiratory Rate 18 Blood Pressure 150/93 H Pulse Oximetry 99 Intake & Output 11/28/17 11/29/17 11/29/17 18:59 06:59 18:59 Other: # Voids 2 Date of Last Bowel Movement 11/28/17 Narrative: GENERAL: Alert, oriented x3, NAD. SKIN: Warm and dry. HEAD: Normocephalic. EYES: No scleral icterus. No injection or drainage. NECK: Supple, trachea midline. No JVD or lymphadenopathy. CARDIOVASCULAR: Regular rate and rhythm without murmurs, gallops, or rubs. RESPIRATORY: Breath sounds equal bilaterally. No accessory muscle use. GASTROINTESTINAL: Abdomen soft, non-tender, nondistended. MUSCULOSKELETAL: No cyanosis, or edema. BACK: Nontender without obvious deformity. No CVA tenderness. Results - Labs CBC & Chem 7: 11/30/17 04:42 11/30/17 04:42 Laboratory Results - last 24 hr 11/28/17 12:46 Lipase 3933 H Assessment and Plan - Plan Mr. Connolly is a pleasant 47-year-old who was admitted to the hospital due to recurrent pancreatitis. Acute pancreatitis History of previous episodes of pancreatitis History of Yousif's esophagus -s/p EGD and endoscopic ultrasound study - 11/29/2017. -Continue acetaminophen for pain 1-4, [place] for pain 5-10 and morphine 4 mg every 4 hours as needed for breakthrough pain. -Lipase level continues to climb up. Anemia likely chronic -Hemoglobin dropped from 8.7 to 7.8 --> 8.1. -WBC and platelet counts dropped as well. This likely represent hemodilution due to IV fluid. Acute kidney injury -Creatinine on presentation 2.1. Currently 1.39. -Avoid nephrotoxins. Hypertension -Continue amlodipine 5 mg daily as well as metoprolol 100 mg twice daily. -We are holding other blood pressure medications due to acute kidney injury. -Currently normotensive. Full code. Ambulation. Discharge: Upon GI clearance.
[2017-11-29] MEDS ORDERED: Lidocaine PF 1% Inj 5 ML Syringe OTHER ONE (12:40)
--- NOTE | 2017-11-29 13:45 | P.PCN ---
Date of procedure: 11/29/17 Pre-op diagnosis: Acute pancreatitis, pseudocyst Procedure: PROCEDURE PERFORMED EGD with biopsies followed by endoscopic ultrasound PROCEDURE: The procedure, risks and benefits were discussed with Patient/POA and informed consent was obtained. Anesthesia sedated Patient with Diprivan. Patient was placed in the left lateral decubitus position. EGD: The Pentax videoscope was introduced through the oropharynx and advanced to the second portion of the duodenum under direct visualization. Retroflexion was performed in the stomach. FINDINGS: The esophagus this appeared to be unremarkable and within normal limits and the GE junction appeared to be regular The stomach there was an erythemic patch in the cardia probably representing submucosal hemorrhaging from nausea and vomiting heaving this was biopsied otherwise the stomach was unremarkable The duodenum there was some mild to moderate edema of the duodenal sweep of unclear significance with no ulcerations or erosions some mild erythema may be this area was biopsied otherwise duodenum unremarkable EUS: The Pentax videoscope was introduced through the oropharynx and advanced to the second portion of the duodenum . FINDINGS: The pancreatic parenchyma appeared to be diffusely hypoechoic with several small cystic type lesions noted in the pancreatic head with a large cyst noted at the distal end of the common bile duct possibly from the pancreas measuring 2.6 x 3.8 cm this cyst appears to be impinging on the common bile duct causing it to dilated to about 9 mm but there is no obstruction to the bile duct at this point and the bile duct was free of any filling defects I was not able to connect the bile duct to the ampulla by tracing it down the pancreatic head had a similar appearance as the pancreatic body as far as being somewhat hypoechoic with some calcified lesions suggesting chronic pancreatitis the pancreatic duct appeared to be normal and the pancreatic body appeared to be also a little lobular no tumors or masses were seen no lymphadenopathy ESTIMATED BLOOD LOSS: None SPECIMENS REMOVED: Gastric biopsies and duodenal biopsies COMPLICATIONS: None IMPRESSION: Gastritis in the cardia Duodenal edema Chronic pancreatitis Pancreatic pseudocyst Dilated bile duct PLAN: Continue with current supportive care Monitor labs We will start clear liquid diet Further recommendations depending on hospital course Anesthesia: MAC Surgeon: Chetan Puri Condition: stable Disposition: floor
[2017-11-30] MEDS: Sod Chloride 0.9% Inj 1,000 ML IV.CONT SCH ×3 (00:44→13:05)
[2017-11-30] MEDS: Morphine Inj 4 MG/ML Vial IV.PUSH PRN (06:08)
[2017-11-30 06:14] LABS: Hematocrit 24.3 % (39.0-51.0); Hemoglobin 8.2 gm/dL (13.0-17.0); Mean Corpuscular HGB Conc 33.7 % (32.0-36.0); Mean Corpuscular Hemoglobin 31.3 pg (27.0-34.0); Mean Corpuscular Volume 92.9 fL (80.0-100.0); Mean Platelet Volume 8.9 fL (7.0-11.0); Platelet Count 361 th/mm3 (150-450); Red Blood Count 2.62 mil/mm3 (4.50-5.90); Red Cell Distribution Width 20.4 % (11.6-17.2); White Blood Count 6.3 th/mm3 (4.0-11.0)
[2017-11-30 06:28] LABS: Anion Gap 9 meq/L (5-15); Aspartate Aminotransferase 14 U/L (15-37); Blood Urea Nitrogen 6 mg/dL (7-18); Carbon Dioxide 25.3 meq/L (21.0-32.0); Chloride 107 meq/L (98-107); Glucose,Random 81 mg/dL (74-106); Potassium 3.8 meq/L (3.5-5.1); Sodium 141 meq/L (136-145)
[2017-11-30 06:29] LABS: Alanine Aminotransferase 9 U/L (12-78)
[2017-11-30 06:31] LABS: Alkaline Phosphatase 71 U/L (45-117); Lipase 8566 U/L (73-393)
[2017-11-30] MEDS: Folic Acid 1 MG Tablet PO SCH (08:40)
[2017-11-30] MEDS: amLODIPine 5 MG Tablet PO SCH (08:40)
[2017-11-30] MEDS: Metoprolol Tartrate 100 MG Tablet PO SCH (08:41)
[2017-11-30 10:02] VITALS: RESP 16; O2SAT 99
--- NOTE | 2017-11-30 13:58 | P.DS ---
Date of admission: 11/26/17 04:55 Primary care physician: [facility] Brief History from admission: 47-year-old male presents with a 2-week history of waxing and waning sharp epigastric pain radiating to left chest, recent admission to [facility] in [place] 2 weeks ago where he was inpatient for 4 days. Pain improved after IV fluids, and he was discharged home. He says that pain has worsened over the past few days. He denies any nausea or vomiting but does report decreased appetite as well as a 20 pound weight loss over the past month. Denies any fevers or chills. Denies any diarrhea. He does report episode of fecal impaction 2 weeks ago which resolved after laxatives. DS: Summary Hospital Course: Mr. Connolly is a pleasant 47-year-old who was admitted to the hospital due to recurrent pancreatitis. Acute pancreatitis History of previous episodes of pancreatitis History of Yousif's esophagus -s/p EGD and endoscopic ultrasound study - 11/29/2017. -Continue acetaminophen for pain 1-4, Slaughter for pain 5-10 and morphine 4 mg every 4 hours as needed for breakthrough pain. -Lipase level continues to climb up, lipase level over 8600. -I discussed with patient as well as GI at length. Per GI, patient needs to be monitored in the hospital. -Patient feels that he is asymptomatic and should be able to go home. I have explained that GI does not feel it is safe for him to be discharged. Anemia likely chronic -Hemoglobin dropped from 8.7 to 7.8 --> 8.2. -WBC and platelet counts dropped as well. This likely represent hemodilution due to IV fluid. Acute kidney injury -Creatinine on presentation 2.1. Currently 1.15 -Avoid nephrotoxins. Hypertension -Continue amlodipine 5 mg daily as well as metoprolol 100 mg twice daily. -We are holding other blood pressure medications due to acute kidney injury. -Currently normotensive. Patient left Against Medical advice on 11/30/2017. - Time Spent with Patient Total time spent providing and/or coordinating discharge services: Less than 30 minutes - Quality: VTE Deep Vein Thrombosis/Pulmonary Embolism Present on Admission: No Exam Vital signs: Vital Signs 11/29/17 16:00 11/29/17 20:00 11/30/17 00:00 Temperature 97.8 F 97.8 F 98.4 F Pulse Rate 65 73 64 Respiratory Rate 17 18 18 Blood Pressure 152/87 H 148/92 H 139/86 Pulse Oximetry 100 97 99 11/30/17 04:00 11/30/17 08:00 Temperature 97.9 F 97.9 F Pulse Rate 58 L 64 Respiratory Rate 18 16 Blood Pressure 155/85 H 151/88 H Pulse Oximetry 97 99 Intake & Output 11/29/17 11/30/17 11/30/17 18:59 06:59 18:59 Intake Total 1200 / 1200 1000 / 1000 Balance 1200 / 1200 1000 / 1000 Weight 87.6 kg Intake: IV 1000 / 1000 NS Inj 1,000 ML @ 150 mls/hr IV 1000 / 1000 .CONT .[facility]6H40[facility] Rx#:[id number] Anesthesia Amount 1200 / 1200 Other: # Voids 3 4 # Bowel Movements 2 Results Procedures completed during hospitalization: EGD: The Pentax videoscope was introduced through the oropharynx and advanced to the second portion of the duodenum under direct visualization. Retroflexion was performed in the stomach. FINDINGS: The esophagus this appeared to be unremarkable and within normal limits and the GE junction appeared to be regular The stomach there was an erythemic patch in the cardia probably representing submucosal hemorrhaging from nausea and vomiting heaving this was biopsied otherwise the stomach was unremarkable The duodenum there was some mild to moderate edema of the duodenal sweep of unclear significance with no ulcerations or erosions some mild erythema may be this area was biopsied otherwise duodenum unremarkable EUS: The Pentax videoscope was introduced through the oropharynx and advanced to the second portion of the duodenum . FINDINGS: The pancreatic parenchyma appeared to be diffusely hypoechoic with several small cystic type lesions noted in the pancreatic head with a large cyst noted at the distal end of the common bile duct possibly from the pancreas measuring 2.6 x 3.8 cm this cyst appears to be impinging on the common bile duct causing it to dilated to about 9 mm but there is no obstruction to the bile duct at this point and the bile duct was free of any filling defects I was not able to connect the bile duct to the ampulla by tracing it down the pancreatic head had a similar appearance as the pancreatic body as far as being somewhat hypoechoic with some calcified lesions suggesting chronic pancreatitis the pancreatic duct appeared to be normal and the pancreatic body appeared to be also a little lobular no tumors or masses were seen no lymphadenopathy Pending studies at discharge: Pending at discharge 11/29/17 07:28 Surgical [PTH] Routine Labs on day of discharge: Labs from last 24 hours 11/30/17 11/30/17 04:42 04:42 WBC 6.3 RBC 2.62 L Hgb 8.2 L Hct 24.3 L MCV 92.9 MCH 31.3 MCHC 33.7 RDW 20.4 H Plt Count 361 MPV 8.9 Sodium 141 Potassium 3.8 Chloride 107 Carbon Dioxide 25.3 Anion Gap 9 BUN 6 L Creatinine 1.15 Random Glucose 81 Calcium 8.0 L Total Bilirubin 0.1 L AST 14 L ALT 9 L Alkaline Phosphatase 71 Total Protein 7.0 Albumin 2.0 L Lipase 8566 H - Impressions ITS Impressions Abdomen/Pelvis CT 11/26/17 02:19 CONCLUSION: 1. Cystic change in the right upper quadrant. The most common cause for cystic change in this region would be pancreatitis. These could be pseudocysts. 2. Mild ascites. Discharge Plan - Discharge Disposition Patient Disposition: Against Medical Advice - Physicians Team Primary Care Provider: [facility] Attending Provider: Anali Padilla Other Providers: Joel Mar MD
[2017-11-30 15:23] VITALS: BP 148/84; PULSE 66; TEMP 98
--- NOTE | 2017-11-30 15:33 | P.PNGI ---
Subjective Interval history: Resting in the bed and has been sitting up moving about in room this patient status post EGD with EUS on 11/29/2017, no acute nausea or vomiting or abdominal pain <Antonia Sharma - Last Filed: 11/30/17 15:27> Physical Exam Vital signs: Vital Signs 11/29/17 16:00 11/29/17 20:00 11/30/17 00:00 Temperature 97.8 F 97.8 F 98.4 F Pulse Rate 65 73 64 Respiratory Rate 17 18 18 Blood Pressure 152/87 H 148/92 H 139/86 Pulse Oximetry 100 97 99 11/30/17 04:00 11/30/17 08:00 11/30/17 15:21 Temperature 97.9 F 97.9 F 98.0 F Pulse Rate 58 L 64 66 Respiratory Rate 18 16 16 Blood Pressure 155/85 H 151/88 H 148/84 H Pulse Oximetry 97 99 99 Intake & Output 11/29/17 11/30/17 11/30/17 18:59 06:59 18:59 Intake Total 1200 / 1200 1420 / 1420 Output Total 1200 / 1200 Balance 1200 / 1200 220 / 220 Weight 87.6 kg Intake: IV 1000 / 1000 NS Inj 1,000 ML @ 150 mls/hr IV 1000 / 1000 .CONT .Q6H40M [facility] Rx#:[id number] Oral 420 / 420 Anesthesia Amount 1200 / 1200 Output: Urine 1200 / 1200 Other: # Voids 3 4 # Bowel Movements 2 1 - Constitutional no acute distress, disheveled, agitated (Mild anxiety hoping to go home today) - Routine HEENT Exam Head: Present: normocephalic ENT: Present: mucous membranes moist - Routine Respiratory Exam Present: accessory muscle use (No obvious wheezing or rhonchi) - Routine Cardiovascular Exam Present: S1, S2 - Routine Abdominal Exam Present: normoactive bowel sounds (Soft bowel sounds minimal abdominal discomfort at rest) <Antonia Sharma - Last Filed: 11/30/17 15:27> Vital signs: Vital Signs 11/29/17 16:00 11/29/17 20:00 11/30/17 00:00 Temperature 97.8 F 97.8 F 98.4 F Pulse Rate 65 73 64 Respiratory Rate 17 18 18 Blood Pressure 152/87 H 148/92 H 139/86 Pulse Oximetry 100 97 99 11/30/17 04:00 11/30/17 08:00 11/30/17 15:21 Temperature 97.9 F 97.9 F 98.0 F Pulse Rate 58 L 64 66 Respiratory Rate 18 16 16 Blood Pressure 155/85 H 151/88 H 148/84 H Pulse Oximetry 97 99 99 Intake & Output 11/29/17 11/30/17 11/30/17 18:59 06:59 18:59 Intake Total 1200 / 1200 1420 / 1420 Output Total 1200 / 1200 Balance 1200 / 1200 220 / 220 Weight 87.6 kg Intake: IV 1000 / 1000 NS Inj 1,000 ML @ 150 mls/hr IV 1000 / 1000 .CONT .Q6H40M [facility] Rx#:[id number] Oral 420 / 420 Anesthesia Amount 1200 / 1200 Output: Urine 1200 / 1200 Other: # Voids 3 4 # Bowel Movements 2 1 <Chetan Puri E - Last Filed: 11/30/17 15:43> Results - Labs CBC & Chem 7: 11/30/17 04:42 11/30/17 04:42 Laboratory Results - last 24 hr 11/30/17 11/30/17 04:42 04:42 WBC 6.3 RBC 2.62 L Hgb 8.2 L Hct 24.3 L MCV 92.9 MCH 31.3 MCHC 33.7 RDW 20.4 H Plt Count 361 MPV 8.9 Sodium 141 Potassium 3.8 Chloride 107 Carbon Dioxide 25.3 Anion Gap 9 BUN 6 L Creatinine 1.15 Random Glucose 81 Calcium 8.0 L Total Bilirubin 0.1 L AST 14 L ALT 9 L Alkaline Phosphatase 71 Total Protein 7.0 Albumin 2.0 L Lipase 8566 H - Procedures EGD: The Pentax videoscope was introduced through the oropharynx and advanced to the second portion of the duodenum under direct visualization. Retroflexion was performed in the stomach. FINDINGS: The esophagus this appeared to be unremarkable and within normal limits and the GE junction appeared to be regular The stomach there was an erythemic patch in the cardia probably representing submucosal hemorrhaging from nausea and vomiting heaving this was biopsied otherwise the stomach was unremarkable The duodenum there was some mild to moderate edema of the duodenal sweep of unclear significance with no ulcerations or erosions some mild erythema may be this area was biopsied otherwise duodenum unremarkable EUS: The Pentax videoscope was introduced through the oropharynx and advanced to the second portion of the duodenum . FINDINGS: The pancreatic parenchyma appeared to be diffusely hypoechoic with several small cystic type lesions noted in the pancreatic head with a large cyst noted at the distal end of the common bile duct possibly from the pancreas measuring 2.6 x 3.8 cm this cyst appears to be impinging on the common bile duct causing it to dilated to about 9 mm but there is no obstruction to the bile duct at this point and the bile duct was free of any filling defects I was not able to connect the bile duct to the ampulla by tracing it down the pancreatic head had a similar appearance as the pancreatic body as far as being somewhat hypoechoic with some calcified lesions suggesting chronic pancreatitis the pancreatic duct appeared to be normal and the pancreatic body appeared to be also a little lobular no tumors or masses were seen no lymphadenopathy <Antonia Sharma - Last Filed: 11/30/17 15:27> - Labs CBC & Chem 7: 11/30/17 04:42 11/30/17 04:42 Laboratory Results - last 24 hr 11/30/17 11/30/17 04:42 04:42 WBC 6.3 RBC 2.62 L Hgb 8.2 L Hct 24.3 L MCV 92.9 MCH 31.3 MCHC 33.7 RDW 20.4 H Plt Count 361 MPV 8.9 Sodium 141 Potassium 3.8 Chloride 107 Carbon Dioxide 25.3 Anion Gap 9 BUN 6 L Creatinine 1.15 Random Glucose 81 Calcium 8.0 L Total Bilirubin 0.1 L AST 14 L ALT 9 L Alkaline Phosphatase 71 Total Protein 7.0 Albumin 2.0 L Lipase 8566 H <Chetan Puri - Last Filed: 11/30/17 15:43> Assessment and Plan (1) Pancreatitis Status: Acute Code(s): K85.90 - Acute pancreatitis without necrosis or infection, unspecified - Plan 11/30/2017 patient is moving around in the room and states he is feeling better nausea vomiting and abdominal pain more controlled. Labs reviewed with patient which shows increased lipase level 8566, 8.2 hemoglobin Patient status post EGD and EUS on 09/29/2017. Findings include gastritis in the cardia, duodenal edema, chronic pancreatitis chronic pancreatic pseudocyst and dilated bile duct. No obstruction in the bile duct at this point and is free of any filling defects. Calcified lesion suggesting chronic pancreatitis pancreatic duct appears to be normal. Large cyst noted at the distal end of the common bile duct possibly from the pancreas measuring 2.6 x 3.8 cm Discussed findings with patient but also explained to patient that due to his lipase level elevated, GI cannot recommend he safely go home for the hospital until his labs are trending down. PLAN Diet clear liquids, advance slowly as tolerated Recommend further extended hospital stay Alcohol abstinence Monitor labs with special attention to lipase We will start clear liquid diet Further recommendations depending on hospital course Patient was seen per myself and Dr. Puri, note was written on his behalf <Antonia Sharma M - Last Filed: 11/30/17 15:27> (1) Pancreatitis Status: Acute Code(s): K85.90 - Acute pancreatitis without necrosis or infection, unspecified - Plan Patient seen and examined Agree with above Continue with current supportive care Monitor labs Patient somewhat difficult to deal with is at bedside more understanding that with a sudden rise in his lipase its best for him to stay in the hospital and be monitored <Chetan Puri E - Last Filed: 11/30/17 15:43> <Antonia Sharma - Last Filed: 11/30/17 15:27> (1) Pancreatitis Qualifiers: Chronicity: acute Pancreatitis type: unspecified pancreatitis type Acute pancreatitis complication: no infection or necrosis Qualified Code(s): K85.90 - Acute pancreatitis without necrosis or infection, unspecified <Chetan Puri E - Last Filed: 11/30/17 15:43> (1) Pancreatitis Qualifiers: Chronicity: acute Pancreatitis type: unspecified pancreatitis type Acute pancreatitis complication: no infection or necrosis Qualified Code(s): K85.90 - Acute pancreatitis without necrosis or infection, unspecified
== END 2017-11-30 13:30 | disposition left against medical advice (07) ==
LOC: NEPE 00:17 → NEDA 04:55 → N06 06:29
PROVIDERS: ADMIT Hospitalist; ATTEND Hospitalist